=== PATIENT | female | born 2000 | race Two or more races ===

== ENCOUNTER 2022-02-15 16:51 | Emergency (ER) | payer OTHER ==
[2022-02-15 17:17] VITALS: BP 108/76; PULSE 106; RESP 19; TEMP 98.9; BMI 27.6
[2022-02-15] MEDS ORDERED: SODIUM CHLORIDE 0.9% 500 ML INFUS.BAG IV ONE (17:51)
[2022-02-15] MEDS ORDERED: KETOROLAC TROMETHAMINE 30 MG/1 ML VIAL IVPUSH ONE (17:51)
[2022-02-15] MEDS ORDERED: DEXAMETHASONE SOD PHOSPHATE 10 MG/1 ML VIAL IVPUSH ONE (17:51)
[2022-02-15] MEDS ORDERED: METOCLOPRAMIDE HCL INJECTION 10 MG/2 ML VIAL IVPUSH ONE (17:53)
[2022-02-15 19:48] LABS: BASO % 0.4 % (0-2.0); EOS % 0.2 % (0-4.5); HEMATOCRIT 34.6 % (32.4-45.2); HEMOGLOBIN 11.4 GM/dL (10.7-15.3); LYMPH % 13.8 % (8-40); MCH 28.6 pg (25.7-33.7); MCHC 33.1 g/dl (32.0-36.0); MEAN CELL VOLUME 86.6 fl (80-96); MONO % 4.9 % (3.8-10.2); NEUT % 80.7 % (42.8-82.8); PLATELET COUNT 376 10^3/uL (134-434); RBC 3.99 M/mm3 (3.60-5.2); RDW 14.1 % (11.6-15.6); WHITE BLOOD COUNT 11.8 K/mm3 (4.0-10.0)
[2022-02-15 20:12] LABS: ALBUMIN 3.8 g/dl (3.4-5.0); CALCIUM 9.2 mg/dL (8.5-10.1)
[2022-02-15 20:16] LABS: CREATININE 0.8 mg/dL (0.55-1.3)
[2022-02-15 20:17] LABS: BILIRUBIN,TOTAL 0.4 mg/dL (0.2-1); TOT PROT 7.6 g/dl (6.4-8.2)
== END 2022-02-15 20:50 | disposition home or self-care (01) ==
LOC: JER 16:51
PROC: 3E033GC Introduction of Other Therapeutic Substance into Peripheral Vein, Percutaneous Approach (ICD-10-PCS; principal; 2022-02-15)
DX: R51.9 Headache, unspecified (principal)
CPT/HCPCS: 36415; 70450-TC; 80053; 85025; 99285-25; J1100

== ENCOUNTER 2023-03-31 18:48 | Emergency (ER) | payer OTHER ==
[2023-03-31 18:55] VITALS: BP 107/57; PULSE 90; RESP 18; TEMP 98.3; BMI 26.7
== END 2023-03-31 20:53 | disposition home or self-care (01) ==
LOC: JERFT 18:48
DX: H57.11 Ocular pain, right eye (principal); L03.213 Periorbital cellulitis
CPT/HCPCS: 99283-25